=== PATIENT | male | born 1985 | race African-American/Black ===

== ENCOUNTER 2017-06-29 18:08 | Emergency (ER) | payer SELFPAY ==
[~2017-06-29] VITALS: Ht 182.9 cm; Wt 77.1 kg
--- NOTE | 2017-06-29 19:05 | ED GI/GU/ABDOMINAL COMPLAINT ---
History of Present Illness General Chief Complaint: General Adult Stated Complaint: C/O LOWER BACK PAIN Source: patient, old records Exam Limitations: no limitations Vital Signs & Intake/Output Vital Signs & Intake/Output Vital Signs Date Time Temp Pulse Resp B/P B/P Pulse O2 O2 Flow FiO2 Mean Ox Delivery Rate 06/29 1942 97.2 80 20 136/86 98 Room Air 06/29 1823 98.2 79 15 143/85 95 Room Air Room Air Allergies Coded Allergies: No Known Allergies (06/29/17) Reconcile Medications No Known Home Medications Triage Note: PT TO ED FOR C/C OF BURNING WITH URINATION AFTER PT HAD UNPROTECTED SEX LAST WEEK. REPORTS +DISCHARGE FROM [facility]. Triage Nurses Notes Reviewed? yes Onset: Abrupt Duration: day(s): (2-3), constant Timing: recent history Severity Numbers: 3 Location: urethral Radiation: no radiation Activities at Onset: none Prior Abdominal Problems: none Sexually Active: Yes Last Time You Were Sexual: less than 2 months ago Use of Protection: No No Modifying Factors: none Associated Symptoms: denies HPI: 32-year-old male with no medical history presents to ER for evaluation complaining of burning with urination and discharge from his urethra for the past few days after he had unprotected sex last week. He denies history of sexually transmitted disease in the past. No scrotal pain no rashes to skin no abdominal pain or back pain. He is not sought care for the symptoms until today. No modifying factors no fever no chills no nausea no vomiting. (Mandeep Yin) Past History Travel History Traveled to [place] past 21 day No Medical History Any Pertinent Medical History? none Neurological: NONE EENT: NONE Cardiovascular: NONE Respiratory: NONE Gastrointestinal: NONE Hepatic: NONE Renal: NONE Musculoskeletal: NONE Psychiatric: NONE Endocrine: NONE Blood Disorders: NONE Cancer(s): NONE Surgical History Surgical History: none Psychosocial History What is your primary language Syriac Tobacco Use: Current Daily Use Daily Tobacco Use Amount/Type: =< 4 Cigarettes daily ETOH Use: denies use Illicit Drug Use: denies illicit drug use Family History Hx Contributory? No (Mandeep Yin) Review of Systems Review of Systems Constitutional: Reports: see HPI. Comments Review of systems: See HPI, All other systems negative. Constitutional, no chills no fever, HEENT: no sore throat no congestion Cardiovascular: No chest pain Skin: no rashes, no change in skin Respiratory: No dyspnea no cough n GI: No nausea no vomiting, no diarrhea, Muscle skeletal: No joint pain, no back pain Neurologic: , no headache Heme/endocrine: No bruising no bleeding (Mandeep Yin) Physical Exam Physical Exam General Appearance: well developed/nourished, no apparent distress, alert Gastrointestinal: normal bowel sounds, soft Comments: Well-developed well-nourished patient in no apparent distress. HEENT: Atraumatic, extraocular motion intact Neck: Supple, FROM Back: FROM, No cva tenderness Resp: No respiratory distress. Patient speaking in full complete sentences. abd: soft, nontender, no rebound no guarding Extremities: full range of motion Neuro: awake, alert, and oriented to person, place and time. There were no obvious focal neurologic abnormalities. Skin: Warm & dry;No appreciable rash on exposed skin Psych: Mood affect normal, normal memory normal judgment. Core Measures ACS in differential dx? No Sepsis Present: No Sepsis Focused Exam Completed? No (Mandeep Yin) Progress Differential Diagnosis: STD, urinary retention, urethritis, UTI/pyelo Plan of Care: Orders Procedure Date/time Status CULTURE,URINE 06/29 1832 Active CHLAMYDIA-GC DNA PROBE 06/29 1832 Active URINALYSIS 06/29 1832 Complete Laboratory Tests 06/29/171919: Urine Color YEL, Urine Clarity CLEAR, Urine pH 6.5, Ur Specific [place] 1.025, Urine Protein NEG, Urine Ketones NEG, Urine Nitrite NEG, Urine Bilirubin NEG, Urine Urobilinogen 0.2, Ur Leukocyte Esterase NEG, Ur Microscopic EXAM NOT REQUIRED, Urine Hemoglobin NEG, Urine Glucose NEG Microbiology 06/29 1919 URINE ROUT: GC DNA Probe - RECD 06/29 1919 URINE ROUT: Chlamydia DNA Probe (SAHRA) - RECD 06/29 1919 URINE ROUT: Urine Culture - RECD labs ordered. i d/w the pt at [facility] plan of care. medicated with rocephin 250mg IM, azithro 1000mg po. d/w pt plan of care, need to f/u with pmd this week. advised return at anytime sooner with any concerns. he feels comfortable with plan, cleared for dc Initial ED EKG: none (Mandeep Yin) Departure Departure Time of Disposition: 1912 Disposition: HOME OR SELF CARE Condition: Stable Clinical Impression Primary Impression: Urethritis Referrals: Patient Has No Primary Care Dr (PCP/Family) Additional Instructions: As discussed you have been treated prophylactically for sexual transmitted disease. Follow-up with primary care physician next week return to emergency room anytime sooner with any concerns please feel free to call the emergency room at [phone] next week to find the results. Return anytime sooner if any concerns. Departure Forms: Customer Survey General Discharge Information Prescriptions: Current Visit Scripts No Known Home Medications (Renetta LEOS,Mandeep) PA/SIGNAL TESTER Co-Sign Statement Statement: ED Attending supervision documentation- I saw and evaluated the patient. I have also reviewed all the pertinent lab results and diagnostic results. I agree with the findings and the plan of care as documented in the PA's/SIGNAL TESTER's documentation. x I have reviewed the ED Record and agree with the PA's/SIGNAL TESTER's documentation. [] Additions or exceptions (if any) to the PAs/SIGNAL TESTER's note and plan are summarized below: [] (Alis SMITH,Jude)
[2017-06-29 19:43] VITALS: BP 136/86
== END 2017-06-29 19:43 ==
LOC: ERH 18:08
DX: N34.2 Other urethritis (principal)
CPT/HCPCS: 81003; 87086; 87491; 87591; 96372; J0456; J0696